=== PATIENT | female | born 1955 | race Caucasian/White ===

== ENCOUNTER → 2016-09-14 | Outpatient (CLI) | payer OTHER | END | disposition home or self-care (01) | LOC: CFH 09:00 | PROVIDERS: ATTEND General Practice | DX: I08.3 Combined rheumatic disorders of mitral, aortic and tricuspid valves (principal); I37.1 Nonrheumatic pulmonary valve insufficiency; I10 Essential (primary) hypertension | CPT/HCPCS: 78452; 93017; 93306; A9502 ==

== ENCOUNTER → 2020-03-15 | Outpatient (CLI) | payer OTHER ==
[~2020-03-15] MED LIST: ATEN25TA PO
[2020-03-15 17:06] LABS: BASOPHILS % (AUTO) 1 % (0-1); EOSINOPHILS % (AUTO) 4 % (1-7); LYMPHOCYTES % (AUTO) 36 % (22-44); MEAN CORPUSCULAR HGB CONC 32.9 g/dL (32.4-35.8); MEAN PLATELET VOLUME 8.4 fL (7.4-10.4); MONOCYTES % (AUTO) 10 % (2-9); NEUTROPHILS % (AUTO) 49 % (42-75); PLATELET COUNT 200 x10^3/uL (130-400); RED BLOOD COUNT 4.57 x10^6/uL (3.82-5.3); RED CELL DISTRIBUTION WIDTH 12.2 % (9.6-15.2)
[2020-03-15 17:08] LABS: MD NO
== END | disposition home or self-care (01) ==
LOC: STAR 15:22
PROVIDERS: ATTEND Obstetrics & Gynecology
DX: Z01.812 Encounter for preprocedural laboratory examination (principal); Z20.828 Contact with and (suspected) exposure to other viral communicable diseases; Q89.8 Other specified congenital malformations
CPT/HCPCS: 36415; 85025; 87635; 93005

== ENCOUNTER 2020-03-20 05:14 | Day surgery (SDC) | payer MEDICARE, OTHER ==
[~2020-03-20] VITALS: Ht 167.6 cm; Wt 73.0 kg
[2020-03-20] MEDS ORDERED: LIDOCAINE-MPF 1%, 2ML INFIL STA (06:08)
[2020-03-20] MEDS ORDERED: CHLORHEXIDINE 15 ML UDC MM STA (06:08)
[2020-03-20] MEDS ORDERED: LACTATED RINGERS 1,000 ML IV SCH (06:08)
[2020-03-20 06:11] VITALS: BP 141/78
[2020-03-20] MEDS ORDERED: BUPIVACAINE/PF 0.25% ONE (06:16)
[2020-03-20] MEDS ORDERED: INTERCEED 3 X 4 INCH DRESSING ONE (06:17)
[2020-03-20] MEDS ORDERED: SILVER NITRATE STICK TP ONE (06:17)
[2020-03-20] MEDS ORDERED: EPINEPHRINE 1 MG/ML, 1ML ONE (06:17)
[2020-03-20] MEDS ORDERED: MIDAZOLAM 1 MG/ML, 2ML ONE (06:54)
[2020-03-20] MEDS ORDERED: KETOROLAC 30 MG/1 ML ONE (07:13)
[2020-03-20] MEDS ORDERED: ONDANSETRON 2MG/ML, 2ML ONE (07:13)
[2020-03-20] MEDS ORDERED: DEXAMETHASONE 4 MG/ML, 1ML ONE (07:13)
[2020-03-20] MEDS ORDERED: SUCCINYLCHOLINE 20 MG/ML, 10ML ONE (07:13)
[2020-03-20] MEDS ORDERED: PROPOFOL 10 MG/ML, 20ML ONE (07:13)
[2020-03-20] MEDS ORDERED: LABETALOL 5MG/ML, 20ML IV PRN (07:30)
[2020-03-20] MEDS ORDERED: OXYcodone 5 MG/5 ML ORAL.SOL UDC PO PRN (07:30)
[2020-03-20] MEDS ORDERED: DIAZEPAM 5 MG/ML, 2ML IV PRN ×2 (07:30)
[2020-03-20] MEDS ORDERED: hydrALAzine 20 MG/ML, 1ML IV PRN (07:30)
[2020-03-20] MEDS ORDERED: PROMETHAZINE 25 MG/ML, 1ML IV PRN (07:30)
[2020-03-20] MEDS ORDERED: METOCLOPRAMIDE 5 MG/ML, 2ML IV PRN (07:30)
[2020-03-20] MEDS ORDERED: HYDROmorphone 1 MG/ML, 1ML INJ IV PRN (07:30)
[2020-03-20] MEDS ORDERED: ONDANSETRON 2MG/ML, 2ML IVPush PRN (07:30)
[2020-03-20] MEDS ORDERED: MEPERIDINE/PF 25MG/0.5ML IVPush PRN (07:30)
[2020-03-20] MEDS ORDERED: ALBUTEROL SULFATE 2.5 MG/3 ML NPPB PRN (07:30)
[2020-03-20] MEDS ORDERED: KETOROLAC 30 MG/1 ML IV PRN (07:30)
[2020-03-20] MEDS ORDERED: FENTANYL PF 100 MCG/2ML ONE (08:07)
[2020-03-20] MEDS: FENTANYL PF 100 MCG/2ML IV PRN ×2 (08:08→08:19)
[2020-03-20] MEDS ORDERED: OXYcodone 5 MG/5 ML ORAL.SOL UDC ONE (08:21)
== END 2020-03-20 09:35 | disposition home or self-care (01) ==
LOC: OUT 05:14
PROVIDERS: ATTEND Obstetrics & Gynecology
DX: R87.613 High grade squamous intraepithelial lesion on cytologic smear of cervix (HGSIL) (principal); I10 Essential (primary) hypertension; M19.90 Unspecified osteoarthritis, unspecified site; Z90.49 Acquired absence of other specified parts of digestive tract; Z98.890 Other specified postprocedural states; Z88.8 Allergy status to other drugs, medicaments and biological substances; Z81.1 Family history of alcohol abuse and dependence; Z82.49 Family history of ischemic heart disease and other diseases of the circulatory system; Z80.0 Family history of malignant neoplasm of digestive organs
CPT/HCPCS: 57520; 88305; 88307; J0171; J0330; J1100; J1885; J2250; J2405; J2704; J3010; J7120

== ENCOUNTER → 2020-08-15 | Outpatient (CLI) | payer MEDICARE ==
[~2020-08-15] MED LIST changes: +ATEN50TA41 PO
== END | disposition home or self-care (01) ==
LOC: STAR 15:11
PROVIDERS: ATTEND Obstetrics & Gynecology
DX: Z01.818 Encounter for other preprocedural examination (principal); R00.1 Bradycardia, unspecified; Z20.822 Contact with and (suspected) exposure to COVID-19
CPT/HCPCS: 93005; U0003

== ENCOUNTER 2020-08-21 05:38 | Day surgery (SDC) | payer MEDICARE ==
[~2020-08-21] VITALS: Ht 166.4 cm; Wt 71.0 kg
[2020-08-21 06:23] VITALS: BP 119/7
[2020-08-21] MEDS ORDERED: CHLORHEXIDINE 15 ML UDC ONE (06:26)
[2020-08-21] MEDS ORDERED: CHLORHEXIDINE 15 ML UDC PO ONE (06:30)
[2020-08-21] MEDS ORDERED: LIDOCAINE-MPF 1%, 2ML INFIL ONE (06:30)
[2020-08-21] MEDS ORDERED: LACTATED RINGERS 1,000 ML IV SCH (06:30)
[2020-08-21] MEDS ORDERED: EPINEPHRINE 1 MG/ML, 1ML ONE (06:45)
[2020-08-21] MEDS ORDERED: FLUORESCEIN SODIUM 500 MG/5 ML ONE (06:45)
[2020-08-21] MEDS ORDERED: BUPIVACAINE/PF 0.25% ONE (06:45)
[2020-08-21] MEDS ORDERED: MIDAZOLAM 1 MG/ML, 2ML ONE (06:53)
[2020-08-21] MEDS ORDERED: FENTANYL PF 100 MCG/2ML ONE ×2 (06:54→09:55)
[2020-08-21] MEDS ORDERED: HYDROmorphone 1 MG/ML, 1ML INJ ONE ×2 (06:55→10:23)
[2020-08-21] MEDS ORDERED: DEXAMETHASONE 4 MG/ML, 1ML ONE (07:40)
[2020-08-21] MEDS ORDERED: PROPOFOL 10 MG/ML, 20ML ONE (07:40)
[2020-08-21] MEDS ORDERED: CEFOTETAN 2 GM ONE (07:40)
[2020-08-21] MEDS ORDERED: SUGAMMADEX 200 MG/2 ML IVPush ONE (07:40)
[2020-08-21] MEDS ORDERED: ROCURONIUM 10 MG/ML,10ML ONE (07:40)
[2020-08-21] MEDS ORDERED: ONDANSETRON 2MG/ML, 2ML ONE (07:40)
[2020-08-21] MEDS ORDERED: PHENYLEPHRINE 10 MG/ML ONE (07:40)
[2020-08-21] MEDS ORDERED: ONDANSETRON 2MG/ML, 2ML IVPush PRN ×2 (08:30→09:30)
[2020-08-21] MEDS ORDERED: DIPHENHYDRAMINE 50 MG/ML, 1ML IVPush PRN (08:30)
[2020-08-21] MEDS ORDERED: KETOROLAC 30 MG/1 ML IV PRN (08:30)
[2020-08-21] MEDS ORDERED: EPHEDRINE 50 MG/ML, 1ML IVPush PRN (08:30)
[2020-08-21] MEDS ORDERED: PROMETHAZINE 25 MG/ML, 1ML IVPush PRN (08:30)
[2020-08-21] MEDS ORDERED: HYDROmorphone 1 MG/ML, 1ML INJ IVPush PRN (08:30)
[2020-08-21] MEDS ORDERED: METOPROLOL 1 MG/ML, 5ML IV PRN (08:30)
[2020-08-21] MEDS ORDERED: DIAZEPAM 5 MG/ML, 2ML IVPush PRN (08:30)
[2020-08-21] MEDS ORDERED: OXYcodone 5 MG/5 ML ORAL.SOL UDC PO PRN ×2 (08:30→09:30)
[2020-08-21] MEDS ORDERED: ACETAMINOPHEN 325 MG TABLET PO PRN ×2 (08:30→09:30)
[2020-08-21] MEDS ORDERED: MEPERIDINE/PF 25MG/0.5ML IVPush PRN (08:30)
[2020-08-21] MEDS ORDERED: HALOPERIDOL 5 MG/ML IV PRN (08:30)
[2020-08-21] MEDS ORDERED: LABETALOL 5MG/ML, 20ML IV PRN (08:30)
[2020-08-21] MEDS ORDERED: hydrALAzine 20 MG/ML, 1ML IV PRN (08:30)
[2020-08-21] MEDS ORDERED: ACET325T26 PO (09:30)
[2020-08-21] MEDS ORDERED: D5%-0.45% NACL 1,000 ML IV SCH (09:30)
[2020-08-21] MEDS ORDERED: OXYcodone/APAP 5/325MG TABLET PO PRN (09:30)
[2020-08-21] MEDS ORDERED: KETOROLAC 30 MG/1 ML IVPush PRN (09:30)
[2020-08-21] MEDS ORDERED: OXYC1TAB14 PO (09:31)
[2020-08-21] MEDS ORDERED: ONDA-89 PO (09:34)
[2020-08-21] MEDS ORDERED: IBUP-1222 PO (09:35)
[2020-08-21] MEDS ORDERED: OXYcodone 5 MG/5 ML ORAL.SOL UDC ONE (09:55)
[2020-08-21] MEDS: FENTANYL PF 100 MCG/2ML IV PRN ×2 (09:58→10:08)
[2020-08-21] MEDS ORDERED: KETOROLAC 30 MG/1 ML ONE (10:12)
[2020-08-21] MEDS ORDERED: ACETAMINOPHEN 650 MG/20.3 ML UDC ONE (10:12)
[2020-08-21] MEDS ORDERED: IBUPROFEN 600 MG TABLET PO SCH (11:00)
[2020-08-21] MEDS ORDERED: SIMETHICONE 80 MG CHEW TAB PO SCH (16:00)
[2020-08-21] MEDS ORDERED: DOCUSATE 100 MG CAPSULE PO SCH (21:00)
== END 2020-08-21 13:00 | disposition home or self-care (01) ==
LOC: OUT 05:38
PROVIDERS: ATTEND Obstetrics & Gynecology
DX: D06.9 Carcinoma in situ of cervix, unspecified (principal); D25.9 Leiomyoma of uterus, unspecified; N83.312 Acquired atrophy of left ovary; N83.311 Acquired atrophy of right ovary; I10 Essential (primary) hypertension; M19.90 Unspecified osteoarthritis, unspecified site; Z79.899 Other long term (current) drug therapy; Z88.8 Allergy status to other drugs, medicaments and biological substances; Z91.048 Other nonmedicinal substance allergy status; Z90.49 Acquired absence of other specified parts of digestive tract; Z98.890 Other specified postprocedural states; Z80.0 Family history of malignant neoplasm of digestive organs
CPT/HCPCS: 58571; 88307; J0171; J1100; J1170; J1885; J2250; J2370; J2405; J2704; J3010; J7120